=== PATIENT | female | born 1935 | race American Indian/Alaskan Native ===

== ENCOUNTER 2017-06-03 10:22 | Emergency (ER) | payer MEDICARE ==
[~2017-06-03] VITALS: Ht 172.7 cm; Wt 67.6 kg
[~2017-06-03 10:22] MED LIST: LEVFLO500; LEVSOD150 PO; SIMV10 PO; SPACE CHAMBER1 EACH MC; Valium5 MG PO
[2017-06-03] MEDS ORDERED: FLUO10 PO (10:33)
== END 2017-06-03 12:10 | disposition home or self-care (01) ==
LOC: ER 10:22
DX: I80.02 Phlebitis and thrombophlebitis of superficial vessels of left lower extremity (principal); E03.9 Hypothyroidism, unspecified; F17.210 Nicotine dependence, cigarettes, uncomplicated; Z88.0 Allergy status to penicillin; Z79.899 Other long term (current) drug therapy
CPT/HCPCS: 93971; 99284

== ENCOUNTER → 2018-07-04 | Outpatient (CLI) | payer MEDICARE ==
[~2018-07-04] MED LIST changes: +FLUO10 PO
== END ==
LOC: PLD 11:14 → LAB SHORT 11:14
DX: D48.5 Neoplasm of uncertain behavior of skin (principal)
CPT/HCPCS: 88305

== ENCOUNTER 2018-07-19 09:52 | Emergency (ER) | payer MEDICARE ==
[~2018-07-19] VITALS: Ht 162.6 cm; Wt 70.3 kg
[~2018-07-19 09:52] MED LIST changes: +Cipro500 MG PO; +Flagyl500 MG PO; +ONDA4ODT MM
[2018-07-19 10:31] LABS: BASOPHILS ABSOLUTE AUTO 0.01 K/mm3 (0.00-0.23); BASOPHILS PERCENT AUTO 0 % (0-2); EOSINOPHILS PERCENT AUTO 5 % (0-6); Hematocrit 45.6 % (33.0-51.0); Hemoglobin 14.5 g/dL (11.5-16.0); IMMATURE GRAN ABSOLUTE AUTO 0.02 K/mm3 (0.00-0.10); IMMATURE GRAN PERCENT AUTO 0 % (0-1); LYMPHOCYTES ABSOLUTE AUTO 1.56 K/mm3 (0.84-5.20); LYMPHOCYTES PERCENT AUTO 19 % (21-46); MONOCYTES ABSOLUTE AUTO 0.69 K/mm3 (0.16-1.47); MONOCYTES PERCENT AUTO 8 % (4-13); Mean Corpuscular HGB 27.8 pg (26.0-34.0); Mean Corpuscular HGB Conc 31.8 g/dL (31.5-36.5); Mean Corpuscular Volume 87 fL (80-100); Mean Platelet Volume 10.5 fL (9.1-12.4); NEUTROPHILS ABSOLUTE AUTO 5.66 K/mm3 (1.96-9.15); NEUTROPHILS PERCENT AUTO 68 % (41-73); Platelet Count 264 K/mm3 (150-400); RDW Coefficient Variation 14.3 % (11.7-14.2); RDW Standard Deviation 45.9 fL (35.1-46.3); Red Blood Cell Count 5.22 M/mm3 (3.80-5.20); White Blood Cell Count 8.34 K/mm3 (4.00-11.30)
[2018-07-19 10:44] LABS: Alanine Aminotransfer (ALT/SGP 14 U/L (12-78); Albumin, Blood 3.4 g/dL (3.4-5.0); Alk Phos 59 U/L (50-136); Anion Gap 8 mmol/L (6-16); Aspartate Aminotrans (AST/SGOT 14 U/L (12-37); Bilirubin, Total 0.4 mg/dL (0.1-1.0); Blood Urea Nitrogen 8 mg/dL (8-24); Bun/Creatinine Ratio 8.9 (12.0-20.0); CO2, Blood 25 mmol/L (21-32); Calcium, Blood 8.5 mg/dL (8.5-10.1); Chloride, Blood 108 mmol/L (98-108); Globulin, Blood 3.3 g/dL (2.2-4.0); Glomerular Filtration Rate >60 (60-); Glucose, Blood 107 mg/dL (70-99); Potassium, Blood 3.2 mmol/L (3.5-5.5); Sodium, Blood 141 mmol/L (136-145); Total Protein, Blood 6.7 g/dL (6.4-8.2)
[2018-07-19] MEDS ORDERED: Norco 5-325 Ta1 EACH PO (11:55)
== END 2018-07-19 12:14 | disposition home or self-care (01) ==
LOC: ER 09:52
PROVIDERS: Internal Medicine
DX: K52.9 Noninfective gastroenteritis and colitis, unspecified (principal); E03.9 Hypothyroidism, unspecified; E78.5 Hyperlipidemia, unspecified; F17.210 Nicotine dependence, cigarettes, uncomplicated; Z88.0 Allergy status to penicillin; Z79.899 Other long term (current) drug therapy
CPT/HCPCS: 36415; 74177; 80053; 85025; 96361; 96374-59; 96375; 99284-25; J2405; J3010; J7120; Q9967

== ENCOUNTER 2018-07-21 16:10 | Emergency (ER) | payer MEDICARE ==
[~2018-07-21] VITALS: Ht 172.7 cm; Wt 69.0 kg
[~2018-07-21 16:10] MED LIST changes: +Norco 5-325 Ta1 EACH PO
[2018-07-21] MEDS ORDERED: FLUO10 PO (18:03)
[2018-07-21] MEDS ORDERED: DONE10 PO (18:04)
[2018-07-21 18:22] LABS: BASOPHILS ABSOLUTE AUTO 0.02 K/mm3 (0.00-0.23); BASOPHILS PERCENT AUTO 0 % (0-2); EOSINOPHILS PERCENT AUTO 4 % (0-6); Hematocrit 44.4 % (33.0-51.0); Hemoglobin 14.2 g/dL (11.5-16.0); IMMATURE GRAN ABSOLUTE AUTO 0.04 K/mm3 (0.00-0.10); IMMATURE GRAN PERCENT AUTO 1 % (0-1); LYMPHOCYTES ABSOLUTE AUTO 1.07 K/mm3 (0.84-5.20); LYMPHOCYTES PERCENT AUTO 12 % (21-46); MONOCYTES ABSOLUTE AUTO 0.49 K/mm3 (0.16-1.47); MONOCYTES PERCENT AUTO 6 % (4-13); Mean Corpuscular HGB 27.9 pg (26.0-34.0); Mean Corpuscular Volume 87 fL (80-100); Mean Platelet Volume 10.8 fL (9.1-12.4); NEUTROPHILS ABSOLUTE AUTO 6.74 K/mm3 (1.96-9.15); NEUTROPHILS PERCENT AUTO 78 % (41-73); Platelet Count 276 K/mm3 (150-400); RDW Coefficient Variation 14.3 % (11.7-14.2); RDW Standard Deviation 45.9 fL (35.1-46.3); Red Blood Cell Count 5.09 M/mm3 (3.80-5.20); White Blood Cell Count 8.66 K/mm3 (4.00-11.30)
[2018-07-21 18:36] LABS: Alanine Aminotransfer (ALT/SGP 21 U/L (12-78); Albumin, Blood 3.2 g/dL (3.4-5.0); Alk Phos 50 U/L (50-136); Anion Gap 7 mmol/L (6-16); Aspartate Aminotrans (AST/SGOT 32 U/L (12-37); Bilirubin, Total 0.3 mg/dL (0.1-1.0); Blood Urea Nitrogen 5 mg/dL (8-24); Bun/Creatinine Ratio 5.7 (12.0-20.0); CO2, Blood 29 mmol/L (21-32); Calcium, Blood 8.3 mg/dL (8.5-10.1); Chloride, Blood 104 mmol/L (98-108); Creatinine, Blood 0.88 mg/dL (0.40-1.00); Globulin, Blood 3.2 g/dL (2.2-4.0); Glomerular Filtration Rate >60 (60-); Glucose, Blood 141 mg/dL (70-99); Potassium, Blood 3.2 mmol/L (3.5-5.5); Sodium, Blood 140 mmol/L (136-145); Total Protein, Blood 6.4 g/dL (6.4-8.2); Troponin I <0.015 ng/mL (0.000-0.040)
[2018-07-21] MEDS ORDERED: Pepcid20 MG PO (19:25)
== END 2018-07-21 19:37 | disposition home or self-care (01) ==
LOC: ER 16:10
PROVIDERS: Emergency Medicine
DX: R10.13 Epigastric pain (principal); R07.9 Chest pain, unspecified; F43.9 Reaction to severe stress, unspecified; Z88.0 Allergy status to penicillin; Z79.899 Other long term (current) drug therapy; E03.9 Hypothyroidism, unspecified; K21.9 Gastro-esophageal reflux disease without esophagitis; F17.210 Nicotine dependence, cigarettes, uncomplicated
CPT/HCPCS: 36415; 71046; 80053; 83690; 84484; 85025; 93005; 93010; 96374; 99284-25; J2405

== ENCOUNTER 2020-09-07 10:50 | Emergency (ER) | payer OTHER ==
[~2020-09-07] VITALS: Ht 172.7 cm; Wt 77.1 kg
[~2020-09-07 10:50] MED LIST changes: +ALBU3IS INH; +Atarax10 MG PO; +Cyclobenzaprine5 MG PO; +DONE10 PO; +Pepcid20 MG PO; +TIOT18 INH
[2020-09-07 11:45] LABS: BASOPHILS ABSOLUTE AUTO 0.03 K/mm3 (0.00-0.23); BASOPHILS PERCENT AUTO 0 % (0-2); EOSINOPHILS ABSOLUTE AUTO 0.31 K/mm3 (0.00-0.68); EOSINOPHILS PERCENT AUTO 5 % (0-6); Hematocrit 44.7 % (33.0-51.0); Hemoglobin 14.1 g/dL (11.5-16.0); IMMATURE GRAN ABSOLUTE AUTO 0.02 K/mm3 (0.00-0.10); IMMATURE GRAN PERCENT AUTO 0 % (0-1); LYMPHOCYTES ABSOLUTE AUTO 1.64 K/mm3 (0.84-5.20); LYMPHOCYTES PERCENT AUTO 24 % (21-46); MONOCYTES ABSOLUTE AUTO 0.81 K/mm3 (0.16-1.47); MONOCYTES PERCENT AUTO 12 % (4-13); Mean Corpuscular HGB 27.1 pg (26.0-34.0); Mean Corpuscular HGB Conc 31.5 g/dL (31.5-36.5); Mean Corpuscular Volume 86 fL (80-100); Mean Platelet Volume 10.7 fL (9.1-12.4); NEUTROPHILS PERCENT AUTO 59 % (41-73); Platelet Count 268 K/mm3 (150-400); RDW Coefficient Variation 13.7 % (11.7-14.2); RDW Standard Deviation 42.9 fL (35.1-46.3); Red Blood Cell Count 5.21 M/mm3 (3.80-5.20); White Blood Cell Count 6.91 K/mm3 (4.00-11.30)
[2020-09-07 11:59] LABS: Alanine Aminotransfer (ALT/SGP 20 U/L (12-78); Albumin, Blood 3.6 g/dL (3.4-5.0); Albumin/Globulin Ratio 0.9 (0.8-1.8); Alk Phos 84 U/L (50-136); Anion Gap 5 mmol/L (6-16); Aspartate Aminotrans (AST/SGOT 15 U/L (12-37); Bilirubin, Total 0.7 mg/dL (0.1-1.0); Blood Urea Nitrogen 17 mg/dL (8-24); Bun/Creatinine Ratio 18.3 (12.0-20.0); CO2, Blood 28 mmol/L (21-32); Calcium, Blood 9.1 mg/dL (8.5-10.1); Chloride, Blood 104 mmol/L (98-108); Creatinine, Blood 0.93 mg/dL (0.40-1.00); Globulin, Blood 4.1 g/dL (2.2-4.0); Glomerular Filtration Rate >60 (60-); Glucose, Blood 102 mg/dL (70-99); Potassium, Blood 3.9 mmol/L (3.5-5.5); Sodium, Blood 137 mmol/L (136-145); Total Protein, Blood 7.7 g/dL (6.4-8.2)
[2020-09-07 13:29] LABS: Source, Urine Catheter
[2020-09-07 13:35] LABS: Appearance, Urine Clear (Clear); Bilirubin, Urine Neg (Neg); Blood, Urine 1+ (Neg); Color, Urine Yellow (P-Yellow); Glucose Qualitative, Urine Neg (Neg); Ketones, Urine Neg (Neg); Leukocyte Esterase, Urine Neg (Neg); Nitrite, Urine Neg (Neg); Protein, Urine Neg (Neg); Specific Gravity, Urine 1.015 (1.003-1.022); Urobilinogen, Urine NORM (Normal); pH, Urine 6.5 (5.0-8.0)
[2020-09-07 13:55] LABS: Bacteria Few /hpf; Red Blood Cells, Urine 0-2 /hpf (0-2); Squamous Epithelial Cells Few /hpf (Few); White Blood Cells, Urine Rare /hpf (0-5)
[2020-09-07] MEDS ORDERED: OMEP20ER PO (14:46)
[2020-09-07] MEDS ORDERED: Norco 5-325 Ta1 EACH PO (14:46)
== END 2020-09-07 15:00 | disposition home or self-care (01) ==
LOC: ER 10:50
PROVIDERS: Physician Assistant
DX: K29.70 Gastritis, unspecified, without bleeding (principal); M54.5 Low back pain; G89.29 Other chronic pain; E03.9 Hypothyroidism, unspecified; F17.210 Nicotine dependence, cigarettes, uncomplicated; Z88.0 Allergy status to penicillin; Z79.899 Other long term (current) drug therapy
CPT/HCPCS: 36415; 80053; 81001; 83690; 85025; 93005; 93010; 99283-25

== ENCOUNTER 2022-03-06 10:42 | Emergency (ER) | payer MEDICARE ==
[~2022-03-06] VITALS: Ht 172.7 cm; Wt 63.5 kg
[~2022-03-06 10:42] MED LIST changes: +OMEP20ER PO
[2022-03-06] MEDS ORDERED: AZIT250 PO (12:27)
[2022-03-06] MEDS ORDERED: Prednisone20 MG PO (12:27)
== END 2022-03-06 12:39 | disposition home or self-care (01) ==
LOC: ER 10:42
DX: J44.1 Chronic obstructive pulmonary disease with (acute) exacerbation (principal); E03.9 Hypothyroidism, unspecified; F17.210 Nicotine dependence, cigarettes, uncomplicated; Z88.0 Allergy status to penicillin; Z79.890 Hormone replacement therapy; Z79.899 Other long term (current) drug therapy
CPT/HCPCS: 71045; 94640; 94664; A9270; J7512

== ENCOUNTER 2022-10-14 19:41 | Emergency (ER) | payer OTHER ==
[~2022-10-14] VITALS: Ht 175.3 cm; Wt 68.0 kg
[~2022-10-14 19:41] MED LIST changes: +AZIT250 PO; +DOXY100 PO; +PRED20 PO; +Prednisone20 MG PO
[2022-10-14 20:13] VITALS: BP 152/80
[2022-10-14] MEDS ORDERED: IPRAT-ALBUT 0.5-3 ML INH (21:10)
== END 2022-10-14 23:00 | disposition home or self-care (01) ==
LOC: ER 19:41
DX: S52.572A Other intraarticular fracture of lower end of left radius, initial encounter for closed fracture (principal); S81.811A Laceration without foreign body, right lower leg, initial encounter; S50.312A Abrasion of left elbow, initial encounter; M25.512 Pain in left shoulder; Z23 Encounter for immunization; W11.XXXA Fall on and from ladder, initial encounter; Z88.8 Allergy status to other drugs, medicaments and biological substances; Z79.02 Long term (current) use of antithrombotics/antiplatelets; Z79.890 Hormone replacement therapy; Z79.51 Long term (current) use of inhaled steroids; Z79.899 Other long term (current) drug therapy; J44.9 Chronic obstructive pulmonary disease, unspecified; E03.9 Hypothyroidism, unspecified; F17.210 Nicotine dependence, cigarettes, uncomplicated
CPT/HCPCS: 12002; 29105; 73110; 90471; 90714; 99283-25

== ENCOUNTER 2022-11-01 11:02 | Day surgery (SDC) | payer OTHER ==
[~2022-11-01] VITALS: Ht 167.6 cm; Wt 69.0 kg
[~2022-11-01 11:02] MED LIST changes: +IPRAT-ALBUT 0.5-3 ML INH
[2022-11-01] MEDS ORDERED: Synthroid200 MCG PO (12:40)
[2022-11-01] MEDS ORDERED: ASPI81CH PO (12:42)
[2022-11-01] MEDS ORDERED: ACET500 PO (12:43)
[2022-11-01] MEDS ORDERED: Prednisone10 MG PO (12:47)
[2022-11-01 13:02] VITALS: BP 140/62
--- NOTE | 2022-11-01 13:09 | NUR ---
CONNOR WRAP NOTED TO RUE WRIST/FOREARM. ELEVATED ON PILLOW FOR COMFORT.
--- NOTE | 2022-11-01 15:30 | NUR ---
11/01/22 1530 Blanca Batres AXILLARY NERVE BLOCK COMPLETED IN DAY SURGERY BY DR. PADILLA. PT TOLERATED WELL.
[2022-11-01 16:25] VITALS: BP 119/58
--- NOTE | 2022-11-01 16:26 | NUR ---
REPORT RECIEVED. FAMILY AT BEDSIDE. VSS ON ROOM AIR. PT DENIES PAIN
--- NOTE | 2022-11-01 16:33 | NUR ---
DR FLORES AT BEDSIDE. PT TOLERING PO FLUIDS
[2022-11-01 16:59] VITALS: BP 164/66
--- NOTE | 2022-11-01 17:20 | NUR ---
Patient up to Ambulate independently. Gait steady. Discharge instructions reviewed with patient AND FAMILY Patient verbalizes understanding. Copy given to patient to take home.SLING AND ICE PACK AND EXTRA AQUACEL DRESSING PROVIDED Dressing to procedure site clean, dry, intact with no visible drainage, swelling, erythema or bruising noted. Discharged via wheelchair to private car for ride home.
== END 2022-11-01 17:22 | disposition home or self-care (01) ==
LOC: ORSCMMR 11:02 → ORD 12:30 → ORSCMMR 17:22
PROVIDERS: Orthopaedic Surgery
PROC: 0PSJ04Z Reposition Left Radius with Internal Fixation Device, Open Approach (ICD-10-PCS; principal; 2022-11-01 12:30)
DX: S52.532A Colles' fracture of left radius, initial encounter for closed fracture (principal); I10 Essential (primary) hypertension; W08.XXXA Fall from other furniture, initial encounter; Y93.9 Activity, unspecified; J44.9 Chronic obstructive pulmonary disease, unspecified; E78.5 Hyperlipidemia, unspecified; E03.9 Hypothyroidism, unspecified; F17.210 Nicotine dependence, cigarettes, uncomplicated; Z79.899 Other long term (current) drug therapy
CPT/HCPCS: C1713; J0690; J2704; J7120

== ENCOUNTER → 2023-04-26 | Outpatient (CLI) | payer OTHER ==
[~2023-04-26] MED LIST changes: +ACET500 PO; +ASPI81CH PO; +Prednisone10 MG PO; +Synthroid200 MCG PO
== END ==
LOC: LAB SHORT 12:39 → LAB 12:39
DX: L82.1 Other seborrheic keratosis (principal)
CPT/HCPCS: 88305

== ENCOUNTER 2023-05-09 19:20 | Emergency (ER) | payer OTHER ==
[~2023-05-09] VITALS: Ht 172.7 cm; Wt 69.8 kg
[2023-05-09] MEDS ORDERED: Acerola C500 MG PO (19:44)
[2023-05-09] MEDS ORDERED: B12-FOLIC ACID1 EACH PO (19:45)
[2023-05-09] MEDS ORDERED: VITAMIN D310 MC4 PO (19:46)
[2023-05-09] MEDS ORDERED: IBUP400 PO (19:47)
[2023-05-09 20:36] LABS: BASOPHILS ABSOLUTE AUTO 0.02 K/mm3 (0.00-0.23); BASOPHILS PERCENT AUTO 0 % (0-2); EOSINOPHILS ABSOLUTE AUTO 0.07 K/mm3 (0.00-0.68); EOSINOPHILS PERCENT AUTO 1 % (0-6); Hematocrit 42.7 % (33.0-51.0); IMMATURE GRAN ABSOLUTE AUTO 0.05 K/mm3 (0.00-0.10); IMMATURE GRAN PERCENT AUTO 0 % (0-1); LYMPHOCYTES PERCENT AUTO 5 % (21-46); MONOCYTES ABSOLUTE AUTO 1.15 K/mm3 (0.16-1.47); MONOCYTES PERCENT AUTO 9 % (4-13); Mean Corpuscular HGB Conc 32.8 g/dL (31.5-36.5); Mean Corpuscular Volume 82 fL (80-100); Mean Platelet Volume 10.5 fL (9.1-12.4); NEUTROPHILS PERCENT AUTO 85 % (41-73); Platelet Count 242 K/mm3 (150-400); RDW Coefficient Variation 13.8 % (11.7-14.2); RDW Standard Deviation 41.5 fL (35.1-46.3); Red Blood Cell Count 5.18 M/mm3 (3.80-5.20); White Blood Cell Count 12.59 K/mm3 (4.00-11.30)
[2023-05-09 20:55] LABS: Albumin, Blood 3.3 g/dL (3.4-5.0); Bilirubin, Total 0.7 mg/dL (0.1-1.0); Bun/Creatinine Ratio 21.1 (12.0-20.0); Calcium, Blood 8.7 mg/dL (8.5-10.1); Creatinine, Blood 0.95 mg/dL (0.40-1.00); Globulin, Blood 3.3 g/dL (2.2-4.0); Potassium, Blood 3.4 mmol/L (3.5-5.5); Total Protein, Blood 6.6 g/dL (6.4-8.2)
[2023-05-09 21:09] LABS: Influenza A, PCR NEGATIVE (NEGATIVE); Influenza B, PCR NEGATIVE (NEGATIVE); Resp Syncytial Virus, PCR NEGATIVE (NEGATIVE); SARS-Cov-2 (COVID-19) PCR, MMC NEGATIVE (NEGATIVE)
[2023-05-09 21:49] LABS: Source, Urine Clean Catch
[2023-05-09 21:56] LABS: Appearance, Urine Clear (Clear); Bilirubin, Urine Neg (Neg); Blood, Urine 1+ (Neg); Color, Urine Yellow (P-Yellow); Glucose Qualitative, Urine Neg (Neg); Ketones, Urine Neg (Neg); Nitrite, Urine Neg (Neg); Protein, Urine Neg (Neg); Urobilinogen, Urine NORM (Normal)
[2023-05-09 22:23] LABS: Leukocyte Esterase, Urine 1+ (Neg)
[2023-05-09 22:25] LABS: Bacteria Mod /hpf; Red Blood Cells, Urine 0-2 /hpf (0-2); Squamous Epithelial Cells Few /hpf (Few)
[2023-05-09] MEDS ORDERED: Trimethoprim/Sulfamethoxazole DS Tab PO ONE (22:35)
[2023-05-09] MEDS ORDERED: BACTRIM DS TAB1 EAC1 PO (22:36)
[2023-05-09 22:38] VITALS: BP 101/56
== END 2023-05-09 22:51 | disposition home or self-care (01) ==
LOC: ER 19:20
PROVIDERS: Student in an Organized Health Care Education/Training Program
DX: N39.0 Urinary tract infection, site not specified (principal); E03.9 Hypothyroidism, unspecified; J44.9 Chronic obstructive pulmonary disease, unspecified; F17.210 Nicotine dependence, cigarettes, uncomplicated; Z88.0 Allergy status to penicillin; Z88.8 Allergy status to other drugs, medicaments and biological substances; Z79.899 Other long term (current) drug therapy; Z79.890 Hormone replacement therapy; Z79.82 Long term (current) use of aspirin; Z20.822 Contact with and (suspected) exposure to COVID-19
CPT/HCPCS: 0241U; 71046; 80053; 81001; 85025; 87086; 93005; 93010; 99284-25; A9270

== ENCOUNTER 2023-05-10 17:13 | Emergency (ER) | payer OTHER ==
[~2023-05-10] VITALS: Ht 175.3 cm; Wt 65.8 kg
[~2023-05-10 17:13] MED LIST changes: +Acerola C500 MG PO; +B12-FOLIC ACID1 EACH PO; +BACTRIM DS TAB1 EAC1 PO; +IBUP400 PO; +VITAMIN D310 MC4 PO
[2023-05-10 18:21] LABS: BASOPHILS ABSOLUTE AUTO 0.02 K/mm3 (0.00-0.23); BASOPHILS PERCENT AUTO 0 % (0-2); EOSINOPHILS PERCENT AUTO 0 % (0-6); Hematocrit 43.6 % (33.0-51.0); Hemoglobin 14.1 g/dL (11.5-16.0); IMMATURE GRAN ABSOLUTE AUTO 0.03 K/mm3 (0.00-0.10); IMMATURE GRAN PERCENT AUTO 0 % (0-1); LYMPHOCYTES ABSOLUTE AUTO 0.69 K/mm3 (0.84-5.20); LYMPHOCYTES PERCENT AUTO 7 % (21-46); MONOCYTES ABSOLUTE AUTO 0.67 K/mm3 (0.16-1.47); MONOCYTES PERCENT AUTO 6 % (4-13); Mean Corpuscular HGB Conc 32.3 g/dL (31.5-36.5); Mean Corpuscular Volume 83 fL (80-100); Mean Platelet Volume 10.8 fL (9.1-12.4); NEUTROPHILS ABSOLUTE AUTO 9.06 K/mm3 (1.96-9.15); NEUTROPHILS PERCENT AUTO 87 % (41-73); Platelet Count 226 K/mm3 (150-400); RDW Coefficient Variation 14.3 % (11.7-14.2); RDW Standard Deviation 43.8 fL (35.1-46.3); Red Blood Cell Count 5.23 M/mm3 (3.80-5.20); White Blood Cell Count 10.47 K/mm3 (4.00-11.30)
[2023-05-10 18:39] LABS: Albumin, Blood 3.4 g/dL (3.4-5.0); Albumin/Globulin Ratio 0.9 (0.8-1.8); Bun/Creatinine Ratio 18.8 (12.0-20.0); Creatinine, Blood 1.38 mg/dL (0.40-1.00); Globulin, Blood 3.8 g/dL (2.2-4.0); Potassium, Blood 3.6 mmol/L (3.5-5.5); Total Protein, Blood 7.2 g/dL (6.4-8.2)
[2023-05-10] MEDS ORDERED: Potassium Chloride 20 MEQ TabCR PO ONE (20:50)
[2023-05-10] MEDS ORDERED: LevoFLOXacin 500MG/D5W 100ML 100 ML IV ONE (20:50)
[2023-05-10] MEDS ORDERED: CefTRIAXone Sodium 1,000 MG in NS 50 ML IV ONE (20:50)
[2023-05-10] MEDS ORDERED: NS 1,000 ML IV SCH (20:55)
[2023-05-10 22:35] VITALS: BP 114/62
== END 2023-05-10 23:07 | disposition home or self-care (01) ==
LOC: ER 17:13
PROVIDERS: Physician Assistant
DX: N39.0 Urinary tract infection, site not specified (principal); E86.0 Dehydration; E87.6 Hypokalemia; E87.1 Hypo-osmolality and hyponatremia; N28.9 Disorder of kidney and ureter, unspecified; F17.210 Nicotine dependence, cigarettes, uncomplicated; E03.9 Hypothyroidism, unspecified; J44.9 Chronic obstructive pulmonary disease, unspecified; Z88.0 Allergy status to penicillin; Z88.8 Allergy status to other drugs, medicaments and biological substances; Z79.899 Other long term (current) drug therapy; Z79.51 Long term (current) use of inhaled steroids; Z79.890 Hormone replacement therapy; Z79.82 Long term (current) use of aspirin; Z79.52 Long term (current) use of systemic steroids
CPT/HCPCS: 80053; 83605; 85025; 96365; 99283-25; A9270; J1956; J7030

== ENCOUNTER 2023-07-06 10:48 | Emergency (ER) | payer OTHER ==
[~2023-07-06] VITALS: Ht 172.7 cm; Wt 68.0 kg
[2023-07-06] MEDS ORDERED: NS 1,000 ML IV SCH (11:15)
[2023-07-06] MEDS ORDERED: Ipratropium/Albuterol SulF 2.5-0.5MG/3 ML Amp INH ONE (11:15)
[2023-07-06] MEDS ORDERED: MethylPREDNISolone Sod Succ 125 MG Vial IV ONE (11:15)
[2023-07-06 11:25] LABS: BASOPHILS ABSOLUTE AUTO 0.03 K/mm3 (0.00-0.23); BASOPHILS PERCENT AUTO 1 % (0-2); EOSINOPHILS ABSOLUTE AUTO 0.79 K/mm3 (0.00-0.68); EOSINOPHILS PERCENT AUTO 15 % (0-6); Hematocrit 47.4 % (33.0-51.0); Hemoglobin 14.9 g/dL (11.5-16.0); IMMATURE GRAN ABSOLUTE AUTO 0.01 K/mm3 (0.00-0.10); IMMATURE GRAN PERCENT AUTO 0 % (0-1); LYMPHOCYTES PERCENT AUTO 27 % (21-46); MONOCYTES ABSOLUTE AUTO 0.57 K/mm3 (0.16-1.47); MONOCYTES PERCENT AUTO 11 % (4-13); Mean Corpuscular HGB 26.8 pg (26.0-34.0); Mean Corpuscular HGB Conc 31.4 g/dL (31.5-36.5); Mean Corpuscular Volume 85 fL (80-100); Mean Platelet Volume 10.9 fL (9.1-12.4); NEUTROPHILS ABSOLUTE AUTO 2.47 K/mm3 (1.96-9.15); NEUTROPHILS PERCENT AUTO 47 % (41-73); Platelet Count 240 K/mm3 (150-400); RDW Coefficient Variation 13.7 % (11.7-14.2); RDW Standard Deviation 42.5 fL (35.1-46.3); Red Blood Cell Count 5.57 M/mm3 (3.80-5.20); White Blood Cell Count 5.27 K/mm3 (4.00-11.30)
[2023-07-06 11:43] LABS: Albumin, Blood 3.5 g/dL (3.4-5.0); Bilirubin, Total 0.4 mg/dL (0.1-1.0); Bun/Creatinine Ratio 21.8 (12.0-20.0); Calcium, Blood 9.2 mg/dL (8.5-10.1); Creatinine, Blood 0.87 mg/dL (0.40-1.00); Globulin, Blood 3.4 g/dL (2.2-4.0); Potassium, Blood 3.9 mmol/L (3.5-5.5); Total Protein, Blood 6.9 g/dL (6.4-8.2)
[2023-07-06 11:49] LABS: Base Excess Venous 3.5 mmol/L; PCO2 Venous 41.8 mmHg (38-42); pH Blood Venous 7.43 (7.34-7.37)
[2023-07-06 13:09] LABS: Influenza A, PCR NEGATIVE (NEGATIVE); Influenza B, PCR NEGATIVE (NEGATIVE); Resp Syncytial Virus, PCR NEGATIVE (NEGATIVE); SARS-Cov-2 (COVID-19) PCR, MMC NEGATIVE (NEGATIVE)
[2023-07-06] MEDS ORDERED: ALBU90OI INH (13:43)
[2023-07-06] MEDS ORDERED: PRED20 PO (13:43)
[2023-07-06] MEDS ORDERED: LEVFLO500 PO (13:43)
[2023-07-06] MEDS ORDERED: LevoFLOXacin 500 MG Tab PO ONE (13:45)
[2023-07-06 14:19] VITALS: BP 138/58
== END 2023-07-06 14:24 | disposition home or self-care (01) ==
LOC: ER 10:48
PROVIDERS: Emergency Medicine; Physician Assistant
DX: J44.9 Chronic obstructive pulmonary disease, unspecified (principal); F17.210 Nicotine dependence, cigarettes, uncomplicated; E03.9 Hypothyroidism, unspecified; Z79.82 Long term (current) use of aspirin; Z79.52 Long term (current) use of systemic steroids; Z79.899 Other long term (current) drug therapy; Z88.0 Allergy status to penicillin; Z88.8 Allergy status to other drugs, medicaments and biological substances
CPT/HCPCS: 0241U; 71045; 80053; 82803; 83880; 84484; 85025; 93005; 93010; 94640; 94664; 96361; 96374; 99285-25; A9270; J2930; J7030

== ENCOUNTER 2025-01-05 14:53 | Emergency (ER) | payer OTHER ==
[~2025-01-05] VITALS: Ht 172.7 cm; Wt 68.0 kg
[~2025-01-05 14:53] MED LIST changes: +ALBU90OI INH; +LEVFLO500 PO
[2025-01-05] MEDS ORDERED: CeFAZolin Sodium 1,000 MG in NS 50 ML IV ONE (15:25)
[2025-01-05] MEDS ORDERED: FentaNYL Citrate 50 MCG/ML 2 ML Injection IV ONE (16:05)
[2025-01-05 16:35] VITALS: BP 136/63
[2025-01-05] MEDS ORDERED: RX Prepack 6 Tabs Oxycodone 5mg UD ONE (16:40)
[2025-01-05] MEDS ORDERED: CEPH500 PO (16:56)
== END 2025-01-05 16:50 | disposition home or self-care (01) ==
LOC: ER 14:53
DX: S62.522B Displaced fracture of distal phalanx of left thumb, initial encounter for open fracture (principal); S42.211A Unspecified displaced fracture of surgical neck of right humerus, initial encounter for closed fracture; S00.83XA Contusion of other part of head, initial encounter; W01.0XXA Fall on same level from slipping, tripping and stumbling without subsequent striking against object, initial encounter; J44.9 Chronic obstructive pulmonary disease, unspecified; E03.9 Hypothyroidism, unspecified; F17.210 Nicotine dependence, cigarettes, uncomplicated; Z88.0 Allergy status to penicillin; Z88.8 Allergy status to other drugs, medicaments and biological substances; Z79.82 Long term (current) use of aspirin; Z79.890 Hormone replacement therapy; Z79.899 Other long term (current) drug therapy
CPT/HCPCS: 70450; 72125; 73060; 73140; 90702; 90714; A9270; J0690; J3010